=== PATIENT | female | born 1975 | race Caucasian/White ===

== ENCOUNTER → 2017-02-26 | Outpatient (REF) | payer BC ==
[2017-02-26 19:58] LABS: MEAN CORPUSCULAR HEMOGLOBIN 30.2 pg (27.0-33.0); MEAN CORPUSCULAR HGB CONC 32.8 g/dl (32.0-36.5); MEAN CORPUSCULAR VOLUME 92.3 fl (80.0-96.0); RED CELL DISTRIBUTION WIDTH 12.2 % (11.5-14.5); WHITE BLOOD COUNT 7.4 K/mm3 (4.0-10.0)
[2017-02-26 20:09] LABS: FOLLICLE STIMULATING HORMONE 9.7 mIU/mL; LUTEINIZING HORMONE 5.6 mIU/mL
== END ==
LOC: M LAB REF 16:46
PROVIDERS: ATTEND Obstetrics & Gynecology
DX: N92.1 Excessive and frequent menstruation with irregular cycle (principal)

== ENCOUNTER 2017-04-16 05:31 | Day surgery (SDC) | payer BC ==
[~2017-04-16] VITALS: Ht 175.3 cm; Wt 92.1 kg
[2017-04-16] VITALS (7 sets, daily range): BP systolic 106–131; BP diastolic 57–81
[~2017-04-16 05:31] MED LIST: ERRI0.35 PO
[2017-04-16] MEDS ORDERED: ACETAMINOPHEN 650 MG SUPP PR ONE (06:00)
[2017-04-16] MEDS ORDERED: LR 1,000 ML IV ONE (06:00)
[2017-04-16 06:13] LABS: CONTROL LINE HCG INT CTR LINE PRESENT
[2017-04-16 06:15] LABS: MEAN CORPUSCULAR HEMOGLOBIN 31.3 pg (27.0-33.0); MEAN CORPUSCULAR HGB CONC 33.4 g/dl (32.0-36.5); MEAN CORPUSCULAR VOLUME 93.7 fl (80.0-96.0); WHITE BLOOD COUNT 6.2 K/mm3 (4.0-10.0)
[2017-04-16 06:18] LABS: ANION GAP 6 MEQ/L (8-16); BLOOD UREA NITROGEN 9 MG/DL (7-18); CALCIUM LEVEL 8.3 MG/DL (8.5-10.1); CARBON DIOXIDE LEVEL 27 MEQ/L (21-32); CHLORIDE LEVEL 110 MEQ/L (98-107); CREATININE FOR GFR 0.84 MG/DL (0.55-1.02); GLOMERULAR FILTRATION RATE > 60.0 (>60); GLUCOSE, FASTING 86 MG/DL (70-105); POTASSIUM SERUM 4.3 MEQ/L (3.5-5.1); SODIUM LEVEL 143 MEQ/L (136-145)
[2017-04-16] MEDS ORDERED: FLUORESCEIN 10% (100MG/ML) 5 ML VIAL As Ordered ONE (07:16)
[2017-04-16] MEDS ORDERED: BUPIVACAINE/EPIN 0.25% 30 ML VIAL As Ordered ONE (07:16)
[2017-04-16] MEDS ORDERED: ACETAMINOPHEN 120 MG SUPP As Ordered ONE (07:16)
[2017-04-16] MEDS ORDERED: ACETAMINOPHEN 650 MG SUPP As Ordered ONE (07:45)
[2017-04-16] MEDS ORDERED: PERCOCET PO (08:11)
[2017-04-16] MEDS ORDERED: fentaNYL 250 MCG/5 ML INJECTION (J3010) As Ordered ONE (08:13)
[2017-04-16] MEDS ORDERED: dexameTHASONE 4 MG/ML 1ML VIAL (J1100) As Ordered ONE (08:13)
[2017-04-16] MEDS ORDERED: PROPOFOL 200 MG/20 ML VIAL As Ordered ONE ×2 (08:13→09:42)
[2017-04-16] MEDS ORDERED: KETOROLAC 60 MG/2 ML VIAL (J1885) As Ordered ONE (08:13)
[2017-04-16] MEDS ORDERED: LIDOCAINE 2% INJ 100 MG/5 ML SDV (FOR ANES.) As Ordered ONE (08:13)
[2017-04-16] MEDS ORDERED: ROCURONIUM BROMIDE 50 MG/5 ML VIAL As Ordered ONE ×2 (08:13→08:21)
[2017-04-16] MEDS ORDERED: HYDROmorphone HCL 2 MG/ML 1ML VIAL (J1170) As Ordered ONE (08:13)
[2017-04-16] MEDS ORDERED: MIDAZOLAM INJ 2 MG/2 ML VIAL (J2250) As Ordered ONE (08:13)
[2017-04-16] MEDS ORDERED: ONDANSETRON 4MG/2ML VIAL (J2405) As Ordered ONE (08:13)
[2017-04-16] MEDS ORDERED: ePHEDrine SULFATE 25 MG/5 ML(5MG/ML) SYRINGE As Ordered ONE (08:46)
[2017-04-16] MEDS ORDERED: GLYCOPYRROLATE INJ 0.2 MG/ML 2 ML VIAL As Ordered ONE (08:51)
[2017-04-16] MEDS ORDERED: NEOSTIGMINE 1MG/ML 5 ML SYRINGE (J2710) As Ordered ONE (08:51)
[2017-04-16] MEDS: LR 1,000 ML IV SCH ×2 (10:00→18:41)
[2017-04-16] MEDS ORDERED: PERCOCET 5MG/325MG TAB PO PRN ×2 (10:15→10:30)
--- NOTE | 2017-04-16 10:19 | RO ---
DATE OF PROCEDURE: 04/16/2017 Marbella is a 41-year-old female with a history of extensive abnormal uterine bleeding and also found to have bilateral ovarian cysts on ultrasound. After counseling a decision was made for robotic-assisted laparoscopic hysterectomy, removal of both tube and possible ovarian cystectomy. PREOPERATIVE DIAGNOSES: 1. Excessive menstruation. 2. Bilateral ovarian cysts. POSTOPERATIVE DIAGNOSES: 1. Excessive menstruation. 2. Bilateral ovarian cysts. PROCEDURE: 1. Robotic-assisted laparoscopic hysterectomy. 2. Removal of both tubes. 3. Bilateral ovarian cyst (dictation cutting out) 4. Cystoscopy. SURGEON: Matthew Flores DO PUBLIC HEALTH ENGINEER: Calista Salter NP ANESTHESIA: General. COMPLICATIONS: None. ESTIMATED BLOOD LOSS: Less than 20 mL. SPECIMEN SENT TO THE LAB: The uterus, cervix. DESCRIPTION OF PROCEDURE: After obtaining informed consent, patient was taken to the operating room where general anesthetic was found to be adequate. She was then draped and prepped in usual sterile fashion in the dorsal lithotomy position. At this point, a Tsang catheter was placed in the bladder for drainage. We then turned our attention to the vagina where a uterine manipulator was placed. Attention was then turned to the abdomen, where a 10 mm infraumbilical incision was made. Using the Veress needle, the abdomen was insufflated with CO2 gas to approximately 3.5 liters. Then, an 8 mm camera was placed through the port and placed under direct visualization. We then put two 8 mm left lateral ports for robotic arm #2 and the assist port on the right side an 8 mm port was placed for robotic arm #1. After proper placement of the ports, the patient was placed in steep Trendelenburg. The robot was brought to the patient's side at a 45 degree angle and the robot was docked in usual fashion. After docking the robot, an Endo shear was placed in arm #1 and bipolar grasper in arm #2. I then unscrubbed and went to the surgeon console and began the surgery. At this point, the pelvis and abdomen was inspected. The fallopian tubes were found to be mildly adherent to the ovary and sidewall with the bladder adherent to the lower uterine segment. At this point, using the Endo shear, the fallopian tube was all in tension, the mesosalpinx was identified and the fallopian tube was then removed entirely from the ovary down to the utero-ovarian ligaments. At this point, the utero-ovarian ligaments were cauterized and cut using the Endo shear and the bipolar grasper. The anterior leaflet of the broad ligament was then dissected to create a bladder flap. The posterior leaflet was dissected in a similar fashion. The uterine arteries were then skeletonized. The uterine arteries were cauterized and cut using the bipolar grasper and the Endo shear. At this point, the opposite side was done in a similar fashion. After freeing the fallopian tube off the mesosalpinx, the round ligament was cauterized and cut using the bipolar grasper and the Endo shear. The anterior leaflet of the broad ligament was also dissected off to complete the bladder flap as well as the posterior broad ligament. Uterine artery on that side was coagulated and cut using the bipolar grasper and the Endo shear. The anterior colpotomy was performed as well as the posterior colpotomy. At this point, the uterus, cervix and bilateral fallopian tubes were removed through the vagina. They were left in the vagina to maintain pneumoperitoneum. The Endo shear was then removed. The needle racecar driver was inserted, then a V-Loc suture inserted through the assist port. The vaginal cuff was then closed in a running fashion using the V-Loc suture. The peritoneum over the vaginal cuff was then closed using the same V-Loc suture. Pelvis copiously irrigated with normal saline and suctioned out. Attention turned to the ovarian cyst, where it was felt to be a simple cyst. The cyst were then drained. Clear fluid noted on both side. The crater of cyst was then coagulated using the bipolar grasper. Pelvis again copiously irrigated with normal saline and suctioned out. Furacin by the anesthesiologist to perform another to perform the cystoscopy. I then re-scrubbed, went to the patient's vagina, removed the Tsang, after retrograde filled the bladder with 250 mL of normal saline. A cystoscope was inserted. Bilateral urethral jets were noted with yellow dye coming out of them. No evidence of any bladder injury noted. The patient tolerated that procedure well. The Tsang catheter was replaced back in the bladder for drainage. We then turned our attention to the abdomen where the laparoscopic ports were then closed using #0 Vicryl in the fascia and Dermabond on the skin. 0.25% Marcaine was placed for postoperative pain. The patient tolerated procedure well. She was then transferred to recovery room in stable condition.
[2017-04-16] MEDS ORDERED: LR 1,000 ML IV SCH (10:30)
[2017-04-16] MEDS ORDERED: fentaNYL 100 MCG/2 ML INJECTION (J3010) IV PRN (10:30)
[2017-04-16] MEDS ORDERED: MEPERIDINE INJ 25 MG/ML VIAL (J2175) IV PRN (10:30)
[2017-04-16] MEDS ORDERED: METOCLOPRAMIDE INJ 10MG/2ML VIAL (J2765) IV PRN (10:30)
[2017-04-16] MEDS ORDERED: ONDANSETRON 4MG/2ML VIAL (J2405) IV PRN (10:30)
[2017-04-16] MEDS ORDERED: KETOROLAC 30 MG/ML VIAL (J1885) IV PRN (10:30)
[2017-04-16] MEDS: SIMETHICONE 80 MG CHEW TAB PO SCH ×2 (15:41→18:05)
[2017-04-16] MEDS: IBUPROFEN 800 MG TAB PO SCH ×2 (15:41→20:33)
[2017-04-17] VITALS: BP 111/56
[2017-04-17] MEDS: LR 1,000 ML IV SCH (02:00)
[2017-04-17] MEDS: IBUPROFEN 800 MG TAB PO SCH ×2 (02:39→08:33)
[2017-04-17 04:00] VITALS: BP 115/60
[2017-04-17] MEDS: SIMETHICONE 80 MG CHEW TAB PO SCH ×2 (06:40)
[2017-04-17 08:00] VITALS: BP 120/62
== END 2017-04-17 10:57 | disposition home or self-care (01) ==
LOC: M SDC 05:31 → M PED 10:56 → M SDC 04-17 10:57
PROVIDERS: ATTEND Obstetrics & Gynecology
DX: N92.0 Excessive and frequent menstruation with regular cycle (principal); N83.201 Unspecified ovarian cyst, right side; N83.202 Unspecified ovarian cyst, left side; R51 Headache; F17.290 Nicotine dependence, other tobacco product, uncomplicated; Z79.3 Long term (current) use of hormonal contraceptives
CPT/HCPCS: 36415; 49322; 58571; 80048; 84703; 85027; 86850; 86900; 86901; 88309; J0690; J1100; J1170; J1885; J2250; J2405; J2710; J3010

== ENCOUNTER → 2021-02-05 | Outpatient (CLI) | payer BC ==
[~2021-02-05] MED LIST changes: -ERRI0.35 PO; +ERRI0.355 PO; +PERCOCET PO
--- NOTE | 2021-02-05 15:35 | REP ---
INDICATION: PAIN COMPARISON: None. TECHNIQUE: Internal rotation, external rotation, and Y view. FINDINGS: No acute fracture or dislocation. The acromioclavicular and glenohumeral joints are intact and age-appropriate. No periarticular calcifications or overt degenerative changes are appreciated. Sub acromial space is normal. Surrounding soft tissues are unremarkable. IMPRESSION: Normal age-appropriate left shoulder radiographs. <Electronically signed by Efrain Khan > 02/05/21 [id number]
== END ==
LOC: M WUC 15:15
DX: M25.512 Pain in left shoulder (principal)